=== PATIENT | female | born 1985 | race Caucasian/White ===

== ENCOUNTER → 2016-09-18 | Outpatient (REF) | payer SELFPAY | LOC: M LAB REF 17:28 | PROVIDERS: ATTEND Family Medicine | DX: Z12.4 Encounter for screening for malignant neoplasm of cervix (principal) ==

== ENCOUNTER → 2021-01-29 | Outpatient (REF) | payer OTHER ==
[2021-01-29 17:37] LABS: HEMATOCRIT 37.4 % (36.0-47.0); HEMOGLOBIN 12.5 g/dl (12.0-15.5); MEAN CORPUSCULAR HEMOGLOBIN 31.6 pg (27.0-33.0); MEAN CORPUSCULAR HGB CONC 33.4 g/dl (32.0-36.5); MEAN CORPUSCULAR VOLUME 94.7 fl (80.0-96.0); PLATELET COUNT, AUTOMATED 258 10^3/uL (150-450); RED BLOOD COUNT 3.95 10^6/uL (4.00-5.40); WHITE BLOOD COUNT 9.6 10^3/uL (4.0-10.0)
[2021-01-29 18:56] LABS: HEPATITIS C VIRUS ABY INDEX < 0.0 INDEX (<0.8); HIV 1&2 SCREEN CENTAUR NEGATIVE (NEGATIVE)
[2021-01-29 21:24] LABS: GC DNA AMPLIFICATION NEGATIVE (NEGATIVE)
== END ==
LOC: M PLALAB 17:15
PROVIDERS: ATTEND Advanced Practice Midwife
DX: Z36.89 Encounter for other specified antenatal screening (principal); Z3A.10 10 weeks gestation of pregnancy

== ENCOUNTER → 2021-04-01 | Outpatient (REF) | payer OTHER | LOC: M SFHCWAGY 09:37 | PROVIDERS: ATTEND Obstetrics & Gynecology | DX: Z34.90 Encounter for supervision of normal pregnancy, unspecified, unspecified trimester (principal); Z12.4 Encounter for screening for malignant neoplasm of cervix ==

== ENCOUNTER → 2021-04-01 | Outpatient (CLI) | payer OTHER ==
--- NOTE | 2021-04-01 20:15 | REP ---
INDICATION: ANATOMY COMPARISON: None. TECHNIQUE: Transabdominal obstetrical ultrasound with color Doppler evaluation. FINDINGS: Examination demonstrates a single live intrauterine in variable presentation. motion is identified by technologist. Placenta is noted anterior and grade 1 without evidence for placenta previa or abruption. Amniotic fluid volume is normal. Cervix measures 5.4 cm in length and appears closed.. Selected gestational age: 20 weeks 0 days with MICHELLE 08/19/2021. Gestational age by current measurements 19 weeks 1 day with MICHELLE 08/25/2021. FHR equals 153 beats per minute. BPD: 4.3 cm at 18 weeks 6 days HC: 16.7 cm at 19 weeks 2 days AC: 13.4 cm at 18 weeks 6 days FL: 2.9 cm at 18 weeks 6 days HL: 2.9 cm at 19 weeks 3 days HC/AC: 1.24 Estimated weight 265 grams (6thpercentile). Anatomical assessment demonstrates normal structures including cranium, choroid plexus, cavum, cerebellum/posterior fossa, facial features, lungs, diaphragm, stomach, cord insertion/three-vessel cord, kidneys/bladder, spine, and extremities. Limited evaluation of the heart/ventricular outflow tracts due to positioning. IMPRESSION: Single live intrauterine in variable presentation demonstrating lower normal estimated weight. Limited evaluation of the heart/ventricular outflow tracts. Remainder of the anatomical assessment is complete and normal. <Electronically signed by Joel Hagan > 04/01/212011
== END ==
LOC: M WHC 14:26
PROVIDERS: ATTEND Obstetrics & Gynecology
DX: Z36.3 Encounter for antenatal screening for malformations (principal); Z3A.19 19 weeks gestation of pregnancy

== ENCOUNTER → 2021-04-22 | Outpatient (CLI) | payer OTHER ==
--- NOTE | 2021-04-22 14:31 | REP ---
INDICATION: F/U ANATOMY. COMPARISON: 04/01/2021. TECHNIQUE: Real-time sonographic evaluation of the gravid uterus performed. FINDINGS: Estimated gestational age is22 weeks 2 days, EDC 08/24/2021. Today's measurements indicate appropriate growth. Presentation: Cephalic Placenta anterior and fundal, grade 0, without evidence of placenta previa. heart rate is recorded at 146 beats per minute. Amniotic fluid is subjectively normal. Closed cervical length is measured at 3.8 cm. Biometry chart: BPD: 53 mm, 22 weeks 1 days, 45th percentile. HC: 197 mm, 21 weeks 6 days, 39th percentile AC: 173 mm, 22 weeks 2 days, 50th percentile Femur length: 38 mm, 22 weeks 0 days, 43rd percentile HC to AC ratio: 1.14, normal range 1.04-1.23. Estimated weight: 478g, 36th percentile. Four-chamber heart and ventricular outflow tracts are visualized and are grossly unremarkable. IMPRESSION: Viable single intrauterine gestation as above. <Electronically signed by Chance West > 04/22/21 [id number]
== END ==
LOC: M WHC 07:53
PROVIDERS: ATTEND Obstetrics & Gynecology
DX: Z36.89 Encounter for other specified antenatal screening (principal); Z3A.22 22 weeks gestation of pregnancy

== ENCOUNTER → 2021-06-06 | Outpatient (CLI) | payer OTHER ==
[2021-06-06 17:54] LABS: HEMOGLOBIN 10.6 g/dl (12.0-15.5); MEAN CORPUSCULAR HEMOGLOBIN 32.5 pg (27.0-33.0); MEAN CORPUSCULAR HGB CONC 33.1 g/dl (32.0-36.5); MEAN CORPUSCULAR VOLUME 98.2 fl (80.0-96.0); PLATELET COUNT, AUTOMATED 279 10^3/uL (150-450); RED BLOOD COUNT 3.26 10^6/uL (4.00-5.40); WHITE BLOOD COUNT 10.6 10^3/uL (4.0-10.0)
== END ==
LOC: M PLALAB 14:05
PROVIDERS: ATTEND Obstetrics & Gynecology
DX: Z34.02 Encounter for supervision of normal first pregnancy, second trimester (principal); Z3A.23 23 weeks gestation of pregnancy

== ENCOUNTER → 2021-08-02 | Outpatient (REF) | payer OTHER | LOC: M SFHCWAGY 12:55 | PROVIDERS: ATTEND Obstetrics & Gynecology | DX: Z36.89 Encounter for other specified antenatal screening (principal); Z3A.36 36 weeks gestation of pregnancy | CPT/HCPCS: 87081; 87186; G0463 ==